=== PATIENT | male | born 1970 | race Caucasian/White ===

== ENCOUNTER 2023-06-11 13:33 | Emergency (ER) | payer OTHER, SELFPAY ==
[2023-06-11 14:00] VITALS: BP 160/61; PULSE 63; RESP 16; TEMP 36.6; O2SAT 100; BMI 26.6
--- NOTE | 2023-06-11 17:14 | PC.NURSE ---
called multiple times to [facility] without response
== END 2023-06-11 17:15 | disposition left against medical advice (07) ==
PROVIDERS: Emergency Provider Emergency Medicine; PCP Internal Medicine
DX: S61.211A Laceration without foreign body of left index finger without damage to nail, initial encounter (principal); W26.0XXA Contact with knife, initial encounter; Y93.9 Activity, unspecified; Y92.9 Unspecified place or not applicable; Y99.0 Civilian activity done for income or pay
CPT/HCPCS: 99281